=== PATIENT | male | born 2000 | race Caucasian/White ===

== ENCOUNTER 2021-11-22 09:10 | Emergency (ER) | payer BC ==
[2021-11-22 09:17] VITALS: TEMP 98.4
[2021-11-22] MEDS ORDERED: KETOROLAC 15 MG/ML 1 ML VIAL IM STA (09:45)
[2021-11-22] MEDS ORDERED: LIDOCAINE 5% PATCH TOPICAL STA (09:50)
--- NOTE | 2021-11-22 09:51 | ED ---
General Adult HPI - General Chief complaint: Back Pain/Injury Stated complaint: back pain Time Seen by Provider: 11/22/21 09:20 Source: patient, RN notes reviewed Mode of arrival: ambulatory Limitations: no limitations - History of Present Illness Initial comments: 21-year-old male presents to the emergency room for low back pain. He states that yesterday he was out working third have some low back pain. Then last night his father got a new workout set including weights and benches. Patient states he was helping carry this in his back seemed to worsen. Patient states this morning he has pain with movement. States it feels better to lie flat. Patient states it is painful to walk. Patient denies any bladder or bowel changes, saddle anesthesia, weakness of legs, or pain radiating down the legs. Denies fevers or chills. Denies history of IV drug abuse.Patient has no other complaints at this time including shortness of breath, chest pain, abdominal pain, nausea or vomiting, headache, or visual changes. - Related Data Previous Rx's Medication Instructions Recorded Cyclobenzaprine [Flexeril] 10 mg PO TID #14 tab 11/22/21 Ibuprofen [Motrin] 600 mg PO Q6HR PRN #20 tab 11/22/21 Lidocaine 5% Patch [Lidoderm 5% 1 patch TOPICAL DAILY PRN 14 Days 11/22/21 Patch] #14 patch Allergies Allergy/AdvReac Type Severity Reaction Status Date / Time No Known Allergies Allergy Verified 11/22/21 09:17 Review of Systems ROS Statement: Those systems with pertinent positive or pertinent negative responses have been documented in the HPI. ROS Other: All systems not noted in ROS Statement are negative. Past Medical History Past Medical History: Asthma History of Any Multi-Drug Resistant Organisms: None Reported Past Surgical History: Orthopedic Surgery Past Psychological History: No Psychological Hx Reported Smoking Status: Never smoker Past Alcohol Use History: Occasional Past Drug Use History: Marijuana General Exam Limitations: no limitations General appearance: alert, in no apparent distress Head exam: Present: atraumatic Eye exam: Present: normal appearance, PERRL, EOMI. Absent: scleral icterus, conjunctival injection ENT exam: Present: normal exam, mucous membranes moist Neck exam: Present: normal inspection, full ROM. Absent: tenderness Respiratory exam: Present: normal lung sounds bilaterally. Absent: respiratory distress, wheezes Cardiovascular Exam: Present: regular rate, normal rhythm, normal heart sounds GI/Abdominal exam: Present: soft, normal bowel sounds. Absent: distended, tenderness Back exam: Absent: full ROM (patient unable to flex spine secondary to pain), CVA tenderness (R), CVA tenderness (L), vertebral tenderness Course Vital Signs 11/22/21 09:14 Temperature 98.4 F Pulse Rate 81 Respiratory 20 Rate Blood Pressure 122/67 O2 Sat by Pulse 98 Oximetry Medical Decision Making - Medical Decision Making Those are stable. Patient is well appearing. No red flag symptoms. Symptoms worsen with movement. Patient did injure his back yesterday carrying heavy materials. Patient is driving home. Patient given Toradol and lidocaine patch. He'll be discharged home with Motrin and Flexeril. He will also be discharged home with lidocaine patches. He will follow up with orthopedics for possible MRI. He will return here for any worsening symptoms. Disposition Clinical Impression: Mechanical back pain Disposition: HOME SELF-CARE Condition: Good Instructions (If sedation given, give patient instructions): Acute Low Back Pain (ED) Additional Instructions: Please take medications as directed. Follow-up with your doctor. Do not drive while taking Flexeril. Return to the emergency room for any worsening symptoms. Prescriptions: Cyclobenzaprine [Flexeril] 10 mg PO TID #14 tab Lidocaine 5% Patch [Lidoderm 5% Patch] 1 patch TOPICAL DAILY PRN 14 Days #14 patch PRN Reason: Pain Ibuprofen [Motrin] 600 mg PO Q6HR PRN #20 tab PRN Reason: Pain Is patient prescribed a controlled substance at d/c from ED?: No Referrals: Drew Rowland DO [Doctor of Osteopathic Medicine] - 1-2 days Time of Disposition: 09:56
[2021-11-22 11:11] VITALS: BP 122/78; PULSE 74; RESP 18
== END 2021-11-22 11:11 | disposition home or self-care (01) ==
LOC: EC 09:10
DX: M54.50 Low back pain, unspecified (principal)
CPT/HCPCS: 99283; 96372; J1885